=== PATIENT | female | born 1960 | race African-American/Black ===

== ENCOUNTER → 2016-11-10 | Outpatient (CLI) | payer OTHER ==
[~2016-11-10] MED LIST: AMOX500T PO; CYCL1TAB29 PO; FLUO-1 PO; HYDR-3533 PO; META800T81 PO; OXYC1TAB36 PO; PROZ20CA11 PO; ROBA750T PO; TRAM50TA PO
[2016-11-10 16:26] LABS: EOSINOPHIL # 0.2 TH/MM3 (0-0.4); EOSINOPHIL % 5.3 % (0.0-4.0); HEMATOCRIT 39.5 % (35.0-46.0); HEMO FLAGS DIFF FINAL; LYMPH % 35.6 % (9.0-44.0); LYMPHOCYTE # 1.7 TH/MM3 (1.0-4.8); MEAN CELL VOLUME 86.8 FL (80.0-100.0); MEAN CORPUSCULAR HEMOGLOBIN 28.9 PG (27.0-34.0); MEAN CORPUSCULAR HGB CONC 33.3 % (32.0-36.0); MONO % 14.5 % (0.0-8.0); NEUT % 43.6 % (16.0-70.0); PLATELET COUNT 359 TH/MM3 (150-450); RED BLOOD COUNT 4.55 MIL/MM3 (4.00-5.30); RED CELL DISTRIBUTION WIDTH 13.7 % (11.6-17.2); WHITE BLOOD COUNT 4.7 TH/MM3 (4.0-11.0)
[2016-11-10 17:03] LABS: BICARBONATE 29.1 MEQ/L (21.0-32.0); POTASSIUM 3.9 MEQ/L (3.5-5.1)
== END ==
LOC: CLAB 15:49
PROVIDERS: ATTEND Family Medicine
DX: E66.9 Obesity, unspecified (principal); F43.29 Adjustment disorder with other symptoms; L68.0 Hirsutism
CPT/HCPCS: 36415; 80048; 80061; 84443; 85025

== ENCOUNTER 2016-11-16 23:29 | Emergency (ER) | payer OTHER ==
[~2016-11-16 23:29] MED LIST changes: -CYCL1TAB29 PO; -HYDR-3533 PO; -META800T81 PO; -ROBA750T PO; -TRAM50TA PO
[2016-11-16 23:30] VITALS: BP 147/76; PULSE 72; RESP 18; TEMP 98.1; O2SAT 96
[2016-11-17] MEDS ORDERED: ORPHENADRINE INJ 60 MG/2 ML AMP IM ONE (00:30)
[2016-11-17] MEDS ORDERED: ACETAMINOPHEN/HYDROcodone 325 MG/5 MG TAB PO ONE (00:30)
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
[2016-11-17] MEDS ORDERED: HYDR-3533 PO (01:02)
[2016-11-17] MEDS ORDERED: ROBA750T PO (01:02)
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
[2016-11-17] MEDS ORDERED: META800T81 PO (01:53)
== END 2016-11-17 02:14 | disposition home or self-care (01) ==
LOC: NEPB 23:29
DX: S00.93XA Contusion of unspecified part of head, initial encounter (principal); S39.012A Strain of muscle, fascia and tendon of lower back, initial encounter; E78.00 Pure hypercholesterolemia, unspecified; K21.9 Gastro-esophageal reflux disease without esophagitis; G89.29 Other chronic pain; M54.2 Cervicalgia; V43.52XA Car driver injured in collision with other type car in traffic accident, initial encounter; Y99.8 Other external cause status
CPT/HCPCS: 72040; 72100; 96372; 99284; J2360

== ENCOUNTER 2016-12-06 17:35 | Emergency (ER) | payer OTHER ==
[~2016-12-06] VITALS: Ht 162.6 cm; Wt 80.0 kg
[~2016-12-06 17:35] MED LIST changes: -AMOX500T PO; -FLUO-1 PO; +HYDR-3533 PO; -OXYC1TAB36 PO; -PROZ20CA11 PO
[2016-12-06 17:36] VITALS: BP 138/86; PULSE 74; RESP 16; TEMP 97.8; O2SAT 96
[2016-12-06] MEDS ORDERED: CYCL1TAB29 PO (18:37)
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
[2016-12-06] MEDS ORDERED: ORPHENADRINE INJ 60 MG/2 ML AMP IM ONE (18:45)
[2016-12-06 19:33] VITALS: BP 156/63
== END 2016-12-06 19:34 | disposition home or self-care (01) ==
LOC: NEPB 17:35
DX: M54.5 Low back pain (principal); M54.2 Cervicalgia; G89.29 Other chronic pain
CPT/HCPCS: 96372; 99283; J2360